=== PATIENT | female | born 1960 | race Caucasian/White ===

== ENCOUNTER 2016-04-30 11:04 | Day surgery (SDC) | payer OTHER ==
[2016-04-30] MEDS ORDERED: LACTATED RINGERS 1,000 ML IV ONE (11:12)
[2016-04-30] MEDS ORDERED: MIDAZOLAM 2 MG/2 ML VIAL IVP ONE (12:40)
[2016-04-30] MEDS ORDERED: fentaNYL 250 MCG/5 ML VIAL IVP ONE (12:40)
== END 2016-04-30 11:05 | disposition home or self-care (01) ==
PROC: 0DJD8ZZ Inspection of Lower Intestinal Tract, Via Natural or Artificial Opening Endoscopic (ICD-10-PCS; principal; 2016-04-30 12:00)
PROC: 0DB68ZX Excision of Stomach, Via Natural or Artificial Opening Endoscopic, Diagnostic (ICD-10-PCS; 2016-04-30 12:00)
DX: K92.1 Melena (principal); K25.9 Gastric ulcer, unspecified as acute or chronic, without hemorrhage or perforation; K31.9 Disease of stomach and duodenum, unspecified; K64.8 Other hemorrhoids; Q27.33 Arteriovenous malformation of digestive system vessel; J44.9 Chronic obstructive pulmonary disease, unspecified; E11.9 Type 2 diabetes mellitus without complications; K62.5 Hemorrhage of anus and rectum
CPT/HCPCS: 43239; 45378; J3010; J7120